=== PATIENT | female | born 1995 | race Caucasian/White ===

== ENCOUNTER 2020-10-15 21:16 | Emergency (ER) | payer OTHER ==
--- NOTE | 2020-10-15 22:04 | ED ---
Female Urogenital HPI - General Chief complaint: Vaginal Bleeding Stated complaint: Vaginal Bleeding(7 or 8 weeks ) Time Seen by Provider: 10/15/20 21:35 Source: patient, family, RN notes reviewed, old records reviewed Mode of arrival: ambulatory Limitations: no limitations - History of Present Illness Initial comments: This patient's a 25-year-old female who presents emergency room today with onset of vaginal bleeding and spotting for the past 2 days. She is approximately 8 weeks . Her last menstrual period. She states this is her first . She denies any intercourse prior to the abnormal bleeding. Patient states that she's had no testing for this at this time. She reports some lower abdominal cramping. Patient reports that she's had no fevers or chills or chest pain shortness of breath. - Related Data Previous Rx's Medication Instructions Recorded Cephalexin [Keflex] 500 mg PO Q8HR #21 cap 10/15/20 Allergies Allergy/AdvReac Type Severity Reaction Status Date / Time No Known Allergies Allergy Verified 10/15/20 21:31 Review of Systems ROS Statement: Those systems with pertinent positive or pertinent negative responses have been documented in the HPI. ROS Other: All systems not noted in ROS Statement are negative. Past Medical History Additional Past Medical History / Comment(s): ADHD History of Any Multi-Drug Resistant Organisms: None Reported Past Surgical History: No Surgical Hx Reported Past Psychological History: ADD/ADHD, Anxiety, Depression Smoking Status: Former smoker Past Alcohol Use History: Occasional Past Drug Use History: None Reported General Exam - General Exam Comments Initial Comments: 25 year old female, no distress. Limitations: no limitations General appearance: alert, in no apparent distress Head exam: Present: atraumatic, normocephalic, normal inspection Eye exam: Present: normal appearance, PERRL, EOMI. Absent: scleral icterus, conjunctival injection, periorbital swelling ENT exam: Present: normal exam, mucous membranes moist Neck exam: Present: normal inspection. Absent: tenderness, meningismus, lymphadenopathy Respiratory exam: Present: normal lung sounds bilaterally. Absent: respiratory distress, wheezes, rales, rhonchi, stridor Cardiovascular Exam: Present: regular rate, normal rhythm, normal heart sounds. Absent: systolic murmur, diastolic murmur, rubs, gallop, clicks GI/Abdominal exam: Present: soft, normal bowel sounds. Absent: distended, tenderness, guarding, rebound, rigid External exam: Present: normal external exam Speculum exam: Present: normal speculum exam By manual exam: Present: normal by manual exam Extremities exam: Present: normal inspection, full ROM, normal capillary refill. Absent: tenderness, pedal edema, joint swelling, calf tenderness Back exam: Present: normal inspection Neurological exam: Present: alert, oriented X3, CN II-XII intact Psychiatric exam: Present: normal affect, normal mood Skin exam: Present: warm, dry, intact, normal color. Absent: rash Course Vital Signs 10/15/20 10/15/20 21:27 23:30 Temperature 97.2 F L 97.8 F Pulse Rate 69 68 Respiratory 22 16 Rate Blood Pressure 121/50 127/62 O2 Sat by Pulse 97 98 Oximetry Medical Decision Making - Medical Decision Making 25 year old female, female on approximately 7-8 weeks . She reported vaginal bleeding today. On pelvic exam she has no bleeding. No tenderness. UA shows bacteruria, and will place pt on keflex. US shows viable IUP measuring 8 weeks. Rh positive. Pt labs are normal. - Lab Data Result diagrams: 10/15/20 21:58 Lab Results 10/15/20 10/15/20 10/15/20 Range/Units 21:49 21:58 21:58 WBC 10.7 H (3.8-10.6) k/uL RBC 4.07 (3.80-5.40) m/uL Hgb 13.1 (11.4-16.0) gm/dL Hct 38.1 (34.0-46.0) % MCV 93.7 (80.0-100.0) fL MCH 32.1 (25.0-35.0) pg MCHC 34.3 (31.0-37.0) g/dL RDW 12.1 (11.5-15.5) % Plt Count 251 (150-450) k/uL MPV 8.9 Neutrophils % 63 % Lymphocytes % 30 % Monocytes % 5 % Eosinophils % 1 % Basophils % 0 % Neutrophils # 6.7 (1.3-7.7) k/uL Lymphocytes # 3.2 (1.0-4.8) k/uL Monocytes # 0.5 (0-1.0) k/uL Eosinophils # 0.1 (0-0.7) k/uL Basophils # 0.0 (0-0.2) k/uL HCG, Quant mIU/mL Urine Color Light Yellow Urine Appearance Cloudy H (Clear) Urine pH 6.5 (5.0-8.0) Ur Specific [place] 1.006 (1.001-1.035) Urine Protein Negative (Negative) Urine Glucose (UA) Negative (Negative) Urine Ketones Negative (Negative) Urine Blood Negative (Negative) Urine Nitrite Negative (Negative) Urine Bilirubin Negative (Negative) Urine Urobilinogen <2.0 (<2.0) mg/dL Ur Leukocyte Esterase Small H (Negative) Urine RBC 3 (0-5) /hpf Urine WBC 6 H (0-5) /hpf Ur Squamous Epith Cells 8 H (0-4) /hpf Amorphous Sediment Rare H (None) /hpf Urine Bacteria Occasional H (None) /hpf Urine Mucus Rare H (None) /hpf Trichomonas Ag (Rapid) Negative (Negative) Blood Type Blood Type Recheck Bld Type Recheck Status 10/15/20 10/15/20 Range/Units 21:58 21:58 WBC (3.8-10.6) k/uL RBC (3.80-5.40) m/uL Hgb (11.4-16.0) gm/dL Hct (34.0-46.0) % MCV (80.0-100.0) fL MCH (25.0-35.0) pg MCHC (31.0-37.0) g/dL RDW (11.5-15.5) % Plt Count (150-450) k/uL MPV Neutrophils % % Lymphocytes % % Monocytes % % Eosinophils % % Basophils % % Neutrophils # (1.3-7.7) k/uL Lymphocytes # (1.0-4.8) k/uL Monocytes # (0-1.0) k/uL Eosinophils # (0-0.7) k/uL Basophils # (0-0.2) k/uL HCG, Quant 243012.0 mIU/mL Urine Color Urine Appearance (Clear) Urine pH (5.0-8.0) Ur Specific [place] (1.001-1.035) Urine Protein (Negative) Urine Glucose (UA) (Negative) Urine Ketones (Negative) Urine Blood (Negative) Urine Nitrite (Negative) Urine Bilirubin (Negative) Urine Urobilinogen (<2.0) mg/dL Ur Leukocyte Esterase (Negative) Urine RBC (0-5) /hpf Urine WBC (0-5) /hpf Ur Squamous Epith Cells (0-4) /hpf Amorphous Sediment (None) /hpf Urine Bacteria (None) /hpf Urine Mucus (None) /hpf Trichomonas Ag (Rapid) (Negative) Blood Type O Positive Blood Type Recheck No Previous Record Bld Type Recheck Status [facility] ONLY - Radiology Data Radiology results: report reviewed Single living intrauterine fetus. Ultrasound gestational is 8 weeks. No, getting process noted. Heart rate 1 58 bpm. Disposition Clinical Impression: Asymptomatic bacteriuria during , 8 weeks gestation of Disposition: HOME SELF-CARE Condition: Good Instructions (If sedation given, give patient instructions): (ED) Additional Instructions: Patient has a follow-up with [facility]. There is no signs of vaginal bleeding at this time. Return to emergency department if any alarming signs or symptoms occur. Patient should take the antibiotic as prescribed for bacteria in the urine. Prescriptions: Cephalexin [Keflex] 500 mg PO Q8HR #21 cap Is patient prescribed a controlled substance at d/c from ED?: No Referrals: None,Stated [Primary Care Provider] - 1-2 days Time of Disposition: 23:13
[2020-10-15 22:13] LABS: Basophils % (A) 0 %; Eosinophils # (A) 0.1 k/uL (0-0.7); Eosinophils % (A) 1 %; HCT 38.1 % (34.0-46.0); HGB 13.1 gm/dL (11.4-16.0); Lymphocytes # (A) 3.2 k/uL (1.0-4.8); Lymphocytes % (A) 30 %; MCH 32.1 pg (25.0-35.0); MCHC 34.3 g/dL (31.0-37.0); MCV 93.7 fL (80.0-100.0); Mean Platelet Volume 8.9; Monocytes # (A) 0.5 k/uL (0-1.0); Monocytes % (A) 5 %; Neutrophils # (A) 6.7 k/uL (1.3-7.7); Neutrophils % (A) 63 %; Platelet Count 251 k/uL (150-450); RBC 4.07 m/uL (3.80-5.40); RDW 12.1 % (11.5-15.5); WBC 10.7 k/uL (3.8-10.6)
[2020-10-15 22:27] LABS: Amorphous Sediment,Urine Rare /hpf; Appearance,Urine Cloudy (Clear); Bacteria,Urine Occasional /hpf; Bilirubin,Urine Negative (Negative); Blood,Urine Negative (Negative); Color,Urine Light Yellow; Glucose,Urine (UA) Negative (Negative); Ketones,Urine Negative (Negative); Leukocyte Esterase,Urine Small (Negative); Mucus,Urine Rare /hpf; Nitrite,Urine Negative (Negative); PH, Urine 6.5 (5.0-8.0); Protein,Urine Negative (Negative); RBC,Urine 3 /hpf (0-5); Specific Gravity,Urine 1.006 (1.001-1.035); Squamous Epithelial Cell,Urine 8 /hpf (0-4); Urobilinogen,Urine <2.0 mg/dL (<2.0); WBC,Urine 6 /hpf (0-5)
--- NOTE | 2020-10-15 23:06 | US ---
EXAMINATION TYPE: Transabdominal DATE OF EXAM: 10/15/2020 10:35 PM COMPARISON: NONE CLINICAL HISTORY: pain. spotting in early ob x 1 day EXAM PERFORMED: OBTA EXAM MEASUREMENTS: GESTATIONAL AGE / DATING Physician Established: Not yet established Dates by LMP: (8 weeks/4 days) EDC: 05/23/2021 Dates by First Scan: No previous this is first scan Dates by Current Scan for: (8 weeks/0 days) EDC: 05/27/2021 MATERNAL ANATOMY Uterus: 9.0 x 7.1 x 5.6cm Right Ovary: 3.3 x 2.2 x 2.8cm Left Ovary: not seen due to bowel gas and enlarging UT Post CDS / Adnexa: wnl Presence of free fluid: no Presence of corpus luteal cyst: yes, right ov = 2.3cm Presence of subchorionic bleed: no GESTATION / SURVEY CRL: 1.6cm (8 weeks/0 days) MSD: wnl Yolk Sac (normal less than 6mm): 0.2 Heart Rate: 158 bpm Rhythm: Normal IUP: Viable IUP Date of LMP: 08/16/2020 Beta HcG (if available): pending IMPRESSION: Single living intrauterine fetus. Ultrasound gestational age is 8 weeks. No complicating process seen .
[2020-10-15 23:31] VITALS: BP 127/62; PULSE 68; RESP 16; TEMP 97.8
== END 2020-10-15 23:25 | disposition home or self-care (01) ==
LOC: EC 21:16
DX: O26.891 Other specified pregnancy related conditions, first trimester (principal); R82.71 Bacteriuria; Z87.891 Personal history of nicotine dependence; Z3A.08 8 weeks gestation of pregnancy
CPT/HCPCS: 36415; 76801; 81001; 84702; 85025; 86900; 86901; 87491; 87591; 87808; 99284

== ENCOUNTER 2020-11-22 06:25 | Emergency (ER) | payer OTHER ==
[2020-11-22 06:33] VITALS: RESP 18; TEMP 99
--- NOTE | 2020-11-22 06:58 | ED ---
Female Urogenital HPI - General Chief complaint: Urogenital Stated complaint: abd pain,12 wks preg Time Seen by Provider: 11/22/20 06:31 Source: patient Mode of arrival: ambulatory Limitations: no limitations - History of Present Illness Initial comments: 25yo female with no PMH presenting today for cc of lower abdominal cramping and vaginal discharge/pain/itching. pt states she has had some mild lower abdominal cramping. she denies it currently. pt states she has not had any bleeding. denies severe pain. pt admits to external/interal vaginal itching and thicker, white discharge. no specific odor. patient denies nausea, vomiting, upper abdominal pain, fevers, URI symptoms. Pt states she came here for similar complaint and 2 weeks ago and was treated for UTI. patient has no additional complaints. - Related Data Home Medications Medication Instructions Recorded Confirmed Pnv,Calcium 72/Iron/Folic Acid 1 tab PO HS 11/22/20 11/22/20 [ Plus Tablet] Previous Rx's Medication Instructions Recorded Clotrimazole [Gyne-Lotrimin 2% (3 1 applicator VAGINAL HS 3 Days #3 11/22/20 day)] tube Allergies Allergy/AdvReac Type Severity Reaction Status Date / Time No Known Allergies Allergy Verified 11/22/20 06:33 Review of Systems ROS Statement: Those systems with pertinent positive or pertinent negative responses have been documented in the HPI. ROS Other: All systems not noted in ROS Statement are negative. Past Medical History Additional Past Medical History / Comment(s): ADHD History of Any Multi-Drug Resistant Organisms: None Reported Past Surgical History: No Surgical Hx Reported Past Psychological History: ADD/ADHD, Anxiety, Depression Smoking Status: Former smoker Past Alcohol Use History: Occasional Past Drug Use History: None Reported General Exam - General Exam Comments Initial Comments: General: The patient is awake and alert, in no distress Eye: +3 mm pupils are equal, round and reactive to light, extra-ocular movements are intact. No nystagmus. There is normal conjunctiva bilaterally. No signs of icterus. Ears, nose, mouth and throat: There are moist mucous membranes and no oral lesions. Neck: The neck is supple, there is no tenderness or JVD. Cardiovascular: There is a regular rate and rhythm. No murmur, rub or gallop is appreciated. Respiratory: Lungs are clear to auscultation, respirations are non-labored, breath sounds are equal. No wheezes, stridor, rales, or rhonchi. Gastrointestinal: Soft, non-distended, non-tender abdomen without masses or organomegaly noted. There is no rebound or guarding present : red, irritated external tissues, chunky white disharge in vaginal vault. no odors. no cervical motion tenderness. Musculoskeletal: Normal ROM, no tenderness. Strength 5/5. Sensation intact. Radial pulses equal bilaterally 2+. Neurological: A&O x 3. CN II-XII intact grossly, There are no obvious motor or sensory deficits. Coordination appears grossly intact. Speech is normal. Skin: Skin is warm and dry and no rashes or lesions are noted. Psychiatric: Cooperative, appropriate mood & affect, normal judgment. Limitations: no limitations Course Vital Signs 11/22/20 11/22/20 06:30 08:10 Temperature 99 F Pulse Rate 69 79 Respiratory 18 18 Rate Blood Pressure 121/79 98/62 O2 Sat by Pulse 98 98 Oximetry Medical Decision Making - Medical Decision Making findings consistent with juan vaginitis. US WNL. No bleeding hx or exam. Pt has no current cramping. she will be discharged with obgyn f/u. return for worsening symptoms. pt on antibiotics. Urine not clean catch--will culture. [facility] agreeable to care plan. - Lab Data Result diagrams: 11/22/20 07:31 11/22/20 07:31 Lab Results 11/22/20 11/22/20 11/22/20 Range/Units 06:59 06:59 07:31 WBC 12.5 H (3.8-10.6) k/uL RBC 3.95 (3.80-5.40) m/uL Hgb 12.7 (11.4-16.0) gm/dL Hct 37.1 (34.0-46.0) % MCV 94.0 (80.0-100.0) fL MCH 32.3 (25.0-35.0) pg MCHC 34.3 (31.0-37.0) g/dL RDW 12.4 (11.5-15.5) % Plt Count 271 (150-450) k/uL MPV 8.2 Neutrophils % 69 % Lymphocytes % 25 % Monocytes % 3 % Eosinophils % 1 % Basophils % 0 % Neutrophils # 8.6 H (1.3-7.7) k/uL Lymphocytes # 3.1 (1.0-4.8) k/uL Monocytes # 0.4 (0-1.0) k/uL Eosinophils # 0.1 (0-0.7) k/uL Basophils # 0.1 (0-0.2) k/uL Sodium (137-145) mmol/L Potassium (3.5-5.1) mmol/L Chloride (98-107) mmol/L Carbon Dioxide (22-30) mmol/L Anion Gap mmol/L BUN (7-17) mg/dL Creatinine (0.52-1.04) mg/dL Est GFR (CKD-EPI)AfAm (>60 ml/min/1.73 sqM) Est GFR (CKD-EPI)NonAf (>60 ml/min/1.73 sqM) Glucose (74-99) mg/dL Calcium (8.4-10.2) mg/dL Total Bilirubin (0.2-1.3) mg/dL AST (14-36) U/L ALT (4-34) U/L Alkaline Phosphatase (38-126) U/L Total Protein (6.3-8.2) g/dL Albumin (3.5-5.0) g/dL Urine Color Light Yellow Urine Appearance Cloudy H (Clear) Urine pH 6.0 (5.0-8.0) Ur Specific [place] 1.011 (1.001-1.035) Urine Protein Negative (Negative) Urine Glucose (UA) Negative (Negative) Urine Ketones Negative (Negative) Urine Blood Negative (Negative) Urine Nitrite Negative (Negative) Urine Bilirubin Negative (Negative) Urine Urobilinogen <2.0 (<2.0) mg/dL Ur Leukocyte Esterase Moderate H (Negative) Urine RBC 2 (0-5) /hpf Urine WBC 2 (0-5) /hpf Ur Squamous Epith Cells 6 H (0-4) /hpf Urine Bacteria Occasional H (None) /hpf Urine Mucus Rare H (None) /hpf Trichomonas Ag (Rapid) Negative (Negative) Blood Type Blood Type Recheck Bld Type Recheck Status 11/22/20 11/22/20 Range/Units 07:31 07:31 WBC (3.8-10.6) k/uL RBC (3.80-5.40) m/uL Hgb (11.4-16.0) gm/dL Hct (34.0-46.0) % MCV (80.0-100.0) fL MCH (25.0-35.0) pg MCHC (31.0-37.0) g/dL RDW (11.5-15.5) % Plt Count (150-450) k/uL MPV Neutrophils % % Lymphocytes % % Monocytes % % Eosinophils % % Basophils % % Neutrophils # (1.3-7.7) k/uL Lymphocytes # (1.0-4.8) k/uL Monocytes # (0-1.0) k/uL Eosinophils # (0-0.7) k/uL Basophils # (0-0.2) k/uL Sodium 137 (137-145) mmol/L Potassium 3.7 (3.5-5.1) mmol/L Chloride 104 (98-107) mmol/L Carbon Dioxide 25 (22-30) mmol/L Anion Gap 8 mmol/L BUN 5 L (7-17) mg/dL Creatinine 0.43 L (0.52-1.04) mg/dL Est GFR (CKD-EPI)AfAm >90 (>60 ml/min/1.73 sqM) Est GFR (CKD-EPI)NonAf >90 (>60 ml/min/1.73 sqM) Glucose 91 (74-99) mg/dL Calcium 9.6 (8.4-10.2) mg/dL Total Bilirubin 0.3 (0.2-1.3) mg/dL AST 17 (14-36) U/L ALT 13 (4-34) U/L Alkaline Phosphatase 64 (38-126) U/L Total Protein 7.0 (6.3-8.2) g/dL Albumin 4.1 (3.5-5.0) g/dL Urine Color Urine Appearance (Clear) Urine pH (5.0-8.0) Ur Specific [place] (1.001-1.035) Urine Protein (Negative) Urine Glucose (UA) (Negative) Urine Ketones (Negative) Urine Blood (Negative) Urine Nitrite (Negative) Urine Bilirubin (Negative) Urine Urobilinogen (<2.0) mg/dL Ur Leukocyte Esterase (Negative) Urine RBC (0-5) /hpf Urine WBC (0-5) /hpf Ur Squamous Epith Cells (0-4) /hpf Urine Bacteria (None) /hpf Urine Mucus (None) /hpf Trichomonas Ag (Rapid) (Negative) Blood Type O Positive Blood Type Recheck O Pos Bld Type Recheck Status No Disposition Clinical Impression: Abdominal cramping, Yeast vaginitis Disposition: HOME SELF-CARE Condition: Good Additional Instructions: Please use medication as discussed. Please follow-up with family doctor in the next 2 days.. Please return to emergency room if the symptoms increase or worsen or for any other concerns. Prescriptions: Clotrimazole [Gyne-Lotrimin 2% (3 day)] 1 applicator VAGINAL HS 3 Days #3 tube Is patient prescribed a controlled substance at d/c from ED?: No Referrals: None,Stated [Primary Care Provider] - 1-2 days Bill Joshi MD [STAFF PHYSICIAN] - 1-2 days Time of Disposition: 08:15
[2020-11-22 07:46] LABS: Basophils # (A) 0.1 k/uL (0-0.2); Basophils % (A) 0 %; Eosinophils # (A) 0.1 k/uL (0-0.7); Eosinophils % (A) 1 %; HCT 37.1 % (34.0-46.0); HGB 12.7 gm/dL (11.4-16.0); Lymphocytes # (A) 3.1 k/uL (1.0-4.8); Lymphocytes % (A) 25 %; MCH 32.3 pg (25.0-35.0); MCHC 34.3 g/dL (31.0-37.0); Mean Platelet Volume 8.2; Monocytes # (A) 0.4 k/uL (0-1.0); Monocytes % (A) 3 %; Neutrophils # (A) 8.6 k/uL (1.3-7.7); Neutrophils % (A) 69 %; Platelet Count 271 k/uL (150-450); RBC 3.95 m/uL (3.80-5.40); RDW 12.4 % (11.5-15.5); WBC 12.5 k/uL (3.8-10.6)
--- NOTE | 2020-11-22 07:53 | US ---
EXAMINATION TYPE: Transabdominal DATE OF EXAM: 11/22/2020 7:25 AM COMPARISON: NONE CLINICAL HISTORY: pain. EXAM PERFORMED: Transabdominal (TA) EXAM MEASUREMENTS: GESTATIONAL AGE / DATING Physician Established:13 weeks/ 3days) EDC: 05/27/2021 Dates by LMP: (14 weeks/0 days) EDC: 05/23/2021 Dates by First Scan: (13 weeks/3 days) EDC: 05/27/21 Dates by Current Scan for:(13 weeks/0 days) EDC: 05/30/21 MATERNAL ANATOMY Uterus: 14.7 x 8.1 x 10.1cm Right Ovary: 3.2 x 2.3 x 2.1cm Left Ovary: obscured by overlying bowel gas, increasing uterine size Post CDS / Adnexa: wnl Presence of free fluid: no Presence of subchorionic bleed: no GESTATION / SURVEY CRL: 6.7 (12 weeks/3 days) Yolk Sac (normal less than 6mm): not visualized Heart Rate: 157 bpm Rhythm: Normal Date of LMP: 08-16-20 Beta HcG (if available): Not available at this time IMPRESSION: Single intrauterine gestation estimated at 12 weeks 3 days gestation based on crown-rump length. Card iac activity of 157 bpm.
[2020-11-22 07:55] LABS: ALT 13 U/L (4-34); AST 17 U/L (14-36); African American GFR (CKD) >90 (>60 ml/min/1.73 sqM); Albumin 4.1 g/dL (3.5-5.0); Alkaline Phosphatase 64 U/L (38-126); Anion Gap 8 mmol/L; Blood Urea Nitrogen 5 mg/dL (7-17); Calcium 9.6 mg/dL (8.4-10.2); Carbon Dioxide 25 mmol/L (22-30); Chloride 104 mmol/L (98-107); Glucose 91 mg/dL (74-99); Non-African American GFR(CKD) >90 (>60 ml/min/1.73 sqM); Potassium 3.7 mmol/L (3.5-5.1); Sodium 137 mmol/L (137-145); Total Bilirubin 0.3 mg/dL (0.2-1.3)
[2020-11-22 08:11] VITALS: BP 98/62; PULSE 79
[2020-11-22 08:17] LABS: Appearance,Urine Cloudy (Clear); Bacteria,Urine Occasional /hpf; Bilirubin,Urine Negative (Negative); Blood,Urine Negative (Negative); Color,Urine Light Yellow; Glucose,Urine (UA) Negative (Negative); Ketones,Urine Negative (Negative); Leukocyte Esterase,Urine Moderate (Negative); Mucus,Urine Rare /hpf; Nitrite,Urine Negative (Negative); Protein,Urine Negative (Negative); RBC,Urine 2 /hpf (0-5); Specific Gravity,Urine 1.011 (1.001-1.035); Squamous Epithelial Cell,Urine 6 /hpf (0-4); Urobilinogen,Urine <2.0 mg/dL (<2.0); WBC,Urine 2 /hpf (0-5)
[2020-11-23 13:32] LABS: C. trachomatis,PCR Negative (Neg,Equiv); Chlamydia trachomatis Source Vagina; N. gonorrhoeae,PCR Negative (Neg,Equiv); Neisseria Source Vagina
== END 2020-11-22 08:35 | disposition home or self-care (01) ==
LOC: EC 06:25
DX: O98.811 Other maternal infectious and parasitic diseases complicating pregnancy, first trimester (principal); B37.3 Candidiasis of vulva and vagina; O26.891 Other specified pregnancy related conditions, first trimester; R10.30 Lower abdominal pain, unspecified; Z87.891 Personal history of nicotine dependence; Z3A.12 12 weeks gestation of pregnancy; Z87.440 Personal history of urinary (tract) infections
CPT/HCPCS: 36415; 76801; 80053; 81001; 85025; 86900; 86901; 87070; 87491; 87591; 87808; 99284

== ENCOUNTER 2021-05-24 16:25 | Inpatient (IN) | payer OTHER ==
--- NOTE | 2021-05-24 09:37 | P.HPOB ---
History of Present Illness H&P Date: 05/24/21 Chief Complaint: Requested induction of labor This patient is a pleasant 26-year-old 1 para 0 female estimated date of confinement 05/23/2021 estimated gestational age 40 and one sevenths weeks who presents to labor and delivery requesting induction of labor due to postdates. Patient's has been uncomplicated with the exception of breech at 35 weeks however this didn't spontaneously converted to vertex. Patient now has an unfavorable cervix and wishes to be induced. care otherwise has been uncomplicated. Review of Systems Genitourinary: Reports Menstruation: Reports amenorrhea Past Medical History Additional Past Medical History / Comment(s): ADHD History of Any Multi-Drug Resistant Organisms: None Reported Past Surgical History: No Surgical Hx Reported Past Anesthesia/Blood Transfusion Reactions: No Reported Reaction Past Psychological History: ADD/ADHD, Anxiety, Depression Smoking Status: Former smoker Past Alcohol Use History: Occasional Past Drug Use History: Marijuana (History of. Denies use during ) Medications and Allergies Home Medications Medication Instructions Recorded Confirmed Type Clotrimazole [Gyne-Lotrimin 2% (3 1 applicator VAGINAL HS 3 Days #3 11/22/20 Rx day)] tube Pnv,Calcium 72/Iron/Folic Acid 1 tab PO HS 11/22/20 11/22/20 History [ Plus Tablet] Allergies Allergy/AdvReac Type Severity Reaction Status Date / Time No Known Allergies Allergy Verified 11/22/20 06:33 Exam - OBG Physical Exam Abdomen: bowel sounds normal, no diffuse tenderness, no bruit present, no guarding noted, no hepatomegaly, no splenomegaly, no mass Vulva: both: normal Vagina: normal moisture, no discharge Cervix: no lesion, no discharge Uterus: enlarged (Fundal height 39 cm) Results blood work shows she is A positive, rubella nonimmune, RPR nonreactive, hepatitis B negative, HIV is negative, quad screen was normal, Glucola was 148 with a normal three-hour gtt., group B strep was negative, most recent ultrasound showed the baby to be 5 lbs. 15 oz. and that was on April 17 Assessment and Plan Assessment: This is a pleasant 26-year-old 1 para 0 female 40 and one sevenths weeks gestation requesting induction of labor. Patient hasn't ounces favorable cervix and therefore were going to proceed with Cervidil placement and Pitocin induction tomorrow. Patient I discussed the induction process and all of her questions been answered. (1) Postmaturity , 40-42 weeks gestation Status: Acute Code(s): O48.0 - POST-TERM SNOMED Code(s): 27596572446714 (2) Elective induction of labor planned Status: Acute Code(s): VUC9395 - SNOMED Code(s): 072526136 (3) Rubella non-immune status, antepartum Status: Acute Code(s): O99.891 - OTH DISEASES AND CONDITIONS COMPLICATING ; Z28.3 - UNDERIMMUNIZATION STATUS SNOMED Code(s): 104172485
[2021-05-24] MEDS ORDERED: DINOPROSTONE 10 MG INSERT.ER VAGINAL ONE (16:36)
[2021-05-25] MEDS ORDERED: LIDOCAINE 0.5% (PF) 5 MG/ML (50 ML SDV) SQ PRN (05:17)
[2021-05-25] MEDS ORDERED: OXYTOCIN 10 UNIT/ML 1 ML VIAL IM PRN (05:17)
[2021-05-25] MEDS ORDERED: METHYLERGONOVINE 0.2 MG/ML 1 ML AMP IM PRN (05:17)
[2021-05-25] MEDS ORDERED: OXYTOCIN 30 UNITS/500 ML NS 30 UNIT in SALINE 1 500ML.BAG IV SCH ×2 (05:17→17:45)
[2021-05-25] MEDS ORDERED: TERBUTALINE 1 MG/ML VIAL SQ PRN (05:17)
[2021-05-25] MEDS ORDERED: CARBOPROST TROMETHAMINE 250 MCG/ML 1 ML AMP IM PRN (05:17)
[2021-05-25] MEDS: LACTATED RINGERS 1,000 ML IV SCH ×2 (05:45→12:50)
[2021-05-25 06:31] LABS: Basophils % (A) 0 %; Eosinophils # (A) 0.1 k/uL (0-0.7); Eosinophils % (A) 1 %; HCT 35.3 % (34.0-46.0); HGB 11.7 gm/dL (11.4-16.0); Lymphocytes # (A) 3.2 k/uL (1.0-4.8); Lymphocytes % (A) 20 %; MCH 29.7 pg (25.0-35.0); MCHC 33.2 g/dL (31.0-37.0); MCV 89.7 fL (80.0-100.0); Monocytes # (A) 0.8 k/uL (0-1.0); Monocytes % (A) 5 %; Neutrophils # (A) 11.4 k/uL (1.3-7.7); Neutrophils % (A) 72 %; Platelet Count 431 k/uL (150-450); RBC 3.93 m/uL (3.80-5.40); RDW 14.6 % (11.5-15.5); WBC 15.8 k/uL (3.8-10.6)
[2021-05-25] MEDS: BUTORPHANOL 1 MG/ML 1 ML VIAL IV PRN ×2 (11:26→14:35)
[2021-05-25] MEDS: BENZOCAINE/MENTHOL LOZENG 1 EACH LOZENGE MUCOUS MEM PRN (13:01)
[2021-05-25] MEDS ORDERED: CITRIC ACID-SODIUM CITRATE 15 ML CUP PO ONE (16:53)
[2021-05-25] MEDS ORDERED: OXYTOCIN 30 UNITS/500 ML NS BAG IV ONE (16:58)
[2021-05-25] MEDS ORDERED: KETOROLAC 15 MG/ML 1 ML VIAL ONE (16:58)
[2021-05-25] MEDS ORDERED: MORPHINE SULFATE (PF) 0.3 MG/0.3 ML SYR ONE (16:58)
[2021-05-25] MEDS ORDERED: NALOXONE 0.4 MG/ML 1 ML VIAL IV PRN (17:38)
[2021-05-25] MEDS ORDERED: diphenhydrAMINE 25 MG CAP PO PRN (17:38)
[2021-05-25] MEDS ORDERED: METOCLOPRAMIDE 5 MG/ML 2 ML VIAL IVP PRN (17:38)
[2021-05-25] MEDS ORDERED: diphenhydrAMINE 50 MG/ML 1 ML VIAL IVP PRN (17:38)
[2021-05-25] MEDS ORDERED: HYDROmorphone 2 MG TAB PO PRN (17:38)
[2021-05-25] MEDS ORDERED: SIMETHICONE 80 MG CHEWABLE PO PRN (17:38)
[2021-05-25] MEDS ORDERED: LANOLIN CREAM 5 GM TUBE TOPICAL PRN (17:38)
[2021-05-25] MEDS ORDERED: ZOLPIDEM 5 MG TAB PO PRN (17:38)
[2021-05-25] MEDS ORDERED: ONDANSETRON 4 MG/2 ML VIAL IVP PRN (17:38)
--- NOTE | 2021-05-25 17:50 | P.OP ---
Date of Procedure: 05/25/21 Preoperative Diagnosis: #1: 40-2/7 week intrauterine . #2: Failure to progress in labor. Postoperative Diagnosis: Same, macrosomia Procedure(s) Performed: Primary low transverse section Anesthesia: spinal Surgeon: Esteban Proctor Fisher Scallop #1: Sara Mukherjee Estimated Blood Loss (ml): 600 Pathology: none sent Condition: stable Disposition: floor Indications for Procedure: Please see dictated H&P for intimate details of this patient's admission. Brief summary this pleasant 26-year-old 1 para 0 female 40-2/7 weeks gestation admitted to labor and delivery for postdates induction of labor. Patient has Cervidil placed, Pitocin induction progresses only to 3 cm without descent of the head. This time I counseled the patient despite adequate labor we've not had progression and we elected proceed with section for delivery. Patient does understand the surgery and risks and risks of infection, bleeding, possible injury bowel, bladder, vessels, and/or other organs. All the patient's questions are answered written consent obtained. Operative Findings: This is a vigorous viable male Apgars 9 and 9 delivery time is 1713 hrs. weight was 9 lbs. 2 oz. 4150 g Description of Procedure: This patient has a Hernández catheter placed to straight drain. She is subsequently taken to the operating room where she sat up and spinal anesthetic is adm inistered without incident. With an adequate level of anesthesia she has abdominal prep and drape. Scalpels and taken Pfannenstiel skin incision is then made. A second scalpel is taken down the fascia the fascia scored with a knife. Fascial incision extended bilaterally using Benavides scissors. Fascia is then dissected off the rectus muscles sharply. The rectus muscles are the peritoneum identified and entered sharply. Peritoneal incision extended superior and inferior without difficulty. Bladder blade is then placed. Bladder peritoneum was taken sharply off the lower uterine segment. Scalpels and taken a low transverse uterine incision is then made. Using a hemostat I enter the uterine cavity bluntly and there is loss of small amount of clear fluid. This incision is then extended bluntly. Infant's head is then guided through the incision with fundal pressure delivered. Mouth and nares are bulb suctioned. There is no evidence of nuchal cord. With more fundal pressure we then have deliver the anterior and posterior shoulder and rest this infant's body. Is a vigorous viable male Apgars are 9 and 9 delivery time is 1713 hrs. Infant appears to be grossly normal and has spontaneous respiration. After delivery of the the umbilical cord is doubly clamped and cut appears to be trivascular. Placenta is then manually extracted intact. Uterus is then externalized uterine incision demarcated with Coulter clamps. Uterine incision then closed in 0 Vicryl running locked fashion 2 layers. Excellent hemostasis is noted. Bladder peritoneum was then reapproximated using a 3-0 Vicryl. Excess fluid is removed from the abdomen and pelvis. Uterus placed back into the abdomen. Parietal peritoneum was then closed using 0 Vicryl running fashion. Rectus muscles reapproximated in 0 Vicryl interrupted fashion. Fascial incision is then closed using 0 PDS in a running fashion. Fascial incision is intact and hemostatic. Subcutaneous tissues and closed using a 3-0 Vicryl. Skin is and closed using hossein. All counts are correct 3. There are no complications. Infant and mother are taken to her birthing suite in satisfactory condition.
[2021-05-25] MEDS ORDERED: MEASLES-MUMPS-RUBELLA VACC/PF 12,500 UNIT/0.5 ML VIAL SQ ONE (20:50)
[2021-05-26] MEDS: KETOROLAC 15 MG/ML 1 ML VIAL IVP PRN ×3 (00:45→14:00)
[2021-05-26] MEDS: LACTATED RINGERS 1,000 ML IV SCH ×2 (04:20→16:41)
--- NOTE | 2021-05-26 06:12 | P.PN ---
Progress Note - Text Date:05/26/21 Time:536am Patient is status post . Patient seen this morning with VAS score of 3. c/o of pruritus, no c/o nausea/vomiting, comfortable and doing well.
[2021-05-26] MEDS: SENNOSIDES-DOCUSATE SODIUM 1 EACH TAB PO PRN ×2 (08:04→19:46)
[2021-05-26] MEDS: BENZOCAINE/MENTHOL LOZENG 1 EACH LOZENGE MUCOUS MEM PRN (08:05)
[2021-05-26 08:13] LABS: Basophils # (A) 0.1 k/uL (0-0.2); Basophils % (A) 0 %; Eosinophils # (A) 0.1 k/uL (0-0.7); Eosinophils % (A) 1 %; HCT 30.3 % (34.0-46.0); Lymphocytes # (A) 2.6 k/uL (1.0-4.8); Lymphocytes % (A) 18 %; MCH 29.5 pg (25.0-35.0); MCHC 32.3 g/dL (31.0-37.0); MCV 91.5 fL (80.0-100.0); Mean Platelet Volume 9.3; Monocytes # (A) 0.9 k/uL (0-1.0); Monocytes % (A) 6 %; Neutrophils # (A) 10.9 k/uL (1.3-7.7); Neutrophils % (A) 74 %; Platelet Count 336 k/uL (150-450); RBC 3.31 m/uL (3.80-5.40); RDW 15.2 % (11.5-15.5); WBC 14.7 k/uL (3.8-10.6)
[2021-05-26 08:15] LABS: HGB 9.8 gm/dL (11.4-16.0)
[2021-05-26] MEDS: ACETAMINOPHEN TAB 500 MG TAB PO PRN ×2 (13:05→18:49)
[2021-05-26] MEDS: IBUPROFEN 600 MG TAB PO PRN (22:06)
[2021-05-27] MEDS: ACETAMINOPHEN TAB 500 MG TAB PO PRN ×3 (01:08→19:56)
[2021-05-27] MEDS: IBUPROFEN 600 MG TAB PO PRN ×3 (04:03→23:19)
--- NOTE | 2021-05-27 12:15 | P.DS ---
Providers Date of admission: 05/24/21 16:25 Expected date of discharge: 05/27/21 Attending physician: Esteban Proctor Primary care physician: Esteban Proctor [facility] Course: Overall patient is doing very well postop day 2. She is ambulating, voiding and she is tolerating her diet. Her only complaint is that her left foot has some pain management likely due to the swelling. She does have 2+ pitting edema but no sign or symptom of DVT. Both feet are swollen equally. We'll plan to remove her ohssein today. Discharge instructions were thoroughly reviewed with her. On physical exam vital signs are stable and she is afebrile. Heart regular, lungs clear, extremities without pain. Abdomen soft and uterus is firm. Incision is clean dry and intact will plan to remove hossein again today. She will be discharged home on [place] and Motrin at her request. Prescription for breast pump also provided. Assessment postop day 2 from a . Plan follow up with Dr. Krause in 1 week otherwise as above. Patient Condition at Discharge: Good Plan - Discharge Summary New Discharge Prescriptions: New HYDROcodone/APAP 5-325MG [[place] 5-325] 1 tab PO Q4HR PRN #20 tab PRN Reason: Pain Ibuprofen [Motrin] 600 mg PO Q6HR PRN #30 tab PRN Reason: Pain Ibuprofen [Motrin] 600 mg PO Q6HR PRN #30 tab PRN Reason: Pain No Action Pnv,Calcium 72/Iron/Folic Acid [ Plus Tablet] 1 tab PO HS MDD 1 tab Discharge Medication List Pnv,Calcium 72/Iron/Folic Acid [ Plus Tablet] 1 tab PO HS MDD 1 tab 11/22/20 [History] HYDROcodone/APAP 5-325MG [[place] 5-325] 1 tab PO Q4HR PRN #20 tab 05/27/21 [Rx] Ibuprofen [Motrin] 600 mg PO Q6HR PRN #30 tab 05/27/21 [Rx] Ibuprofen [Motrin] 600 mg PO Q6HR PRN #30 tab 05/27/21 [Rx] Follow up Appointment(s)/Referral(s): Esteban Proctor MD [Primary Care Provider] - 07/05/21 11:15 am (June 02, 2021 @ 08:45a.m.) Activity/Diet/Wound Care/Special Instructions: Lifting, limit stairs and driving, and pelvic rest. If any high temperatures, heavy bleeding, or severe pain call my office Discharge Disposition: HOME SELF-CARE
[2021-05-28 00:57] VITALS: RESP 16
[2021-05-28] MEDS: ACETAMINOPHEN TAB 500 MG TAB PO PRN ×2 (02:23→08:47)
[2021-05-28] MEDS: IBUPROFEN 600 MG TAB PO PRN (05:38)
[2021-05-28 09:52] VITALS: BP 110/68; PULSE 78; TEMP 98.3
== END 2021-05-28 12:26 | disposition home or self-care (01) | DRG 788 ==
LOC: 4FBP 16:25
PROVIDERS: ADMIT Obstetrics & Gynecology; ATTEND Obstetrics & Gynecology
PROC: 10D00Z1 Extraction of Products of Conception, Low, Open Approach (ICD-10-PCS; principal; 2021-05-25 06:30)
DX: O48.0 Post-term pregnancy (principal); O36.63X0 Maternal care for excessive fetal growth, third trimester, not applicable or unspecified; O62.2 Other uterine inertia; Z37.0 Single live birth; Z3A.40 40 weeks gestation of pregnancy; Z87.891 Personal history of nicotine dependence
CPT/HCPCS: 85025; 86850; 86900; 86901; 90707

== ENCOUNTER 2025-05-19 10:10 | Inpatient (IN) | payer OTHER ==
[2025-05-19] MEDS ORDERED: TRANEXAMIC 1,000 MG/100ML-NACL 1,000 MG in EMPTY BAG 1 BAG IV PRN (10:49)
[2025-05-19] MEDS ORDERED: OXYTOCIN 10 UNIT/ML 1 ML VIAL IM PRN (10:49)
[2025-05-19] MEDS ORDERED: miSOPROStoL 200 MCG TAB PO PRN (10:49)
[2025-05-19] MEDS ORDERED: METHYLERGONOVINE 0.2 MG/ML 1 ML AMP IM PRN (10:49)
[2025-05-19] MEDS ORDERED: CARBOPROST TROMETHAMINE 250 MCG/ML 1 ML AMP IM PRN (10:49)
[2025-05-19] MEDS ORDERED: OXYTOCIN 30 UNITS/500 ML NS 30 UNIT in SALINE 1 500ML.BAG IV SCH (11:00)
[2025-05-19] MEDS: LACTATED RINGERS 1,000 ML IV ONE (11:11)
[2025-05-19 11:13] LABS: Basophils # (A) 0.08 10*3/uL (0.00-0.10); Basophils % (A) 0.6 %; Eosinophils # (A) 0.07 10*3/uL (0.04-0.35); Eosinophils % (A) 0.5 %; HCT 32.1 % (37.2-46.3); HGB 10.7 g/dL (12.0-15.0); Lymphocytes % (A) 21.8 %; MCH 29.6 pg (27.0-32.0); MCHC 33.3 g/dL (32.0-37.0); MCV 88.7 fL (80.0-97.0); Monocytes # (A) 0.85 10*3/uL (0.20-1.00); Monocytes % (A) 6.2 %; Neutrophils # (A) 9.66 10*3/uL (1.80-7.70); Neutrophils % (A) 70.2 %; Platelet Count 355 10*3/uL (140-440); RBC 3.62 10*6/uL (4.10-5.20); RDW 14.8 % (11.5-14.5); WBC 13.76 10*3/uL (4.50-10.00)
[2025-05-19 11:31] LABS: Glucose,Whole Blood 98 mg/dL (70-110)
[2025-05-19] MEDS: CITRIC ACID-SODIUM CITRATE 15 ML CUP PO ONE (11:33)
[2025-05-19] MEDS ORDERED: ONDANSETRON 4 MG/2 ML VIAL ONE (12:11)
[2025-05-19] MEDS ORDERED: MORPHINE SULFATE (PF) 0.3 MG/0.3 ML SYR ONE (12:11)
[2025-05-19] MEDS ORDERED: OXYTOCIN 30 UNITS/500 ML NS BAG IV ONE (12:11)
[2025-05-19] MEDS ORDERED: KETOROLAC 15 MG/ML 1 ML VIAL ONE (12:11)
[2025-05-19] MEDS ORDERED: PHENYLEPHRINE-0.9% NACL SYG 1,000 MCG/10 ML SYRINGE ONE (12:11)
[2025-05-19] MEDS ORDERED: NALBUPHINE (ANES) 10 MG/ML - 1 ML AMP ONE (12:11)
[2025-05-19] MEDS ORDERED: METOCLOPRAMIDE 5 MG/ML 2 ML VIAL IVP PRN (13:03)
[2025-05-19] MEDS ORDERED: ZOLPIDEM 5 MG TAB PO PRN (13:03)
[2025-05-19] MEDS ORDERED: LANOLIN CREAM 1 GM TUBE TOPICAL PRN (13:03)
[2025-05-19] MEDS ORDERED: ONDANSETRON 4 MG/2 ML VIAL IVP PRN (13:03)
[2025-05-19] MEDS ORDERED: diphenhydrAMINE 25 MG CAP PO PRN (13:03)
[2025-05-19] MEDS ORDERED: diphenhydrAMINE 50 MG CAP PO PRN (13:03)
[2025-05-19] MEDS ORDERED: NALOXONE 0.4 MG/ML 1 ML VIAL IV PRN (13:03)
[2025-05-19] MEDS ORDERED: SIMETHICONE 80 MG CHEWABLE PO PRN (13:03)
[2025-05-19] MEDS ORDERED: diphenhydrAMINE 50 MG/ML 1 ML VIAL IVP PRN (13:03)
--- NOTE | 2025-05-19 13:09 | P.HPOB ---
History of Present Illness H&P Date: 05/19/25 Chief Complaint: 39-2/7 weeks, previous section requesting repeat The patient is a 30-year-old 2 para 1-0-0-1 admitted at 39-2/7 weeks as established by last menstrual period and confirmed by second trimester ultrasound. Her care began at another practice and transferred to our practice at approximately 26 to 28 weeks. Her was complicated by an initial culture positive for chlamydia which was treated and tested for cure at which time culture was negative. She additionally was found to have a circumvallate placenta for which she had a weekly nonstress test after 32 weeks which was reassuring throughout. She additionally was found to be a gestational diabetic with good sugar control throughout the . She carried a hist ory of a previous section and requested repeat low-transverse section. On labor delivery, all signs are reassuring with a category 1 heart rate tracing. Group B strep status is negative. Obstetrical history: 2 para 1-0-0-1 with 1 term delivery without complications. EDC of 05/25/2025 was established by last menstrual period and confirmed by second trimester ultrasound. Laboratory workup demonstrates a blood type of O+ with a negative antibody screen. Rubella status is immune. The remainder of the laboratory workup was within normal limits. Early Glucola was elevated and followed by a and abnormal 3-hour glucose tolerance test making the diagnosis of diabetes. Blood sugar control was excellent throughout the per report. Group B strep status is negative. Obstetrical history: Positive for chlamydia at the beginning of but treated and cured with a negative test of cure in the third trimester. No other history of STDs. Review of Systems Review of systems is confined to history of present illness. Past Medical History Past Medical History: No Reported History Additional Past Medical History / Comment(s): ADHD History of Any Multi-Drug Resistant Organisms: None Reported Past Surgical History: No Surgical Hx Reported Past Anesthesia/Blood Transfusion Reactions: No Reported Reaction Past Psychological History: ADD/ADHD, Anxiety, Depression Additional Psychological History / Comment(s): prev on meds. no meds for one year Smoking Status: Former smoker Past Alcohol Use History: None Reported, Occasional Past Drug Use History: None Reported, Marijuana - Past Family History Mother Family Medical History: Asthma Medications and Allergies Home Medications Medication Instructions Recorded Confirmed Type Vit No.180/Iron/Folic 1 tab PO HS MDD 1 tab 11/22/20 05/19/25 History [ Plus Tablet] HYDROcodone/APAP 5-325MG [[place] 1 tab PO Q4HR PRN #20 tab 05/27/21 05/19/25 Rx 5-325] Ibuprofen [Motrin] 600 mg PO Q6HR PRN #30 tab 05/27/21 05/19/25 Rx Amoxicillin 250 mg PO BID 05/19/25 05/19/25 History Allergies Allergy/AdvReac Type Severity Reaction Status Date / Time No Known Allergies Allergy Verified 05/19/25 10:47 Exam Vital Signs Temp Pulse Resp BP Pulse Ox 05/19/25 10:47 97.3 F L 97 16 133/56 98 Intake and Output 05/18/25 05/19/25 05/19/25 22:59 06:59 14:59 Other: Weight 95.254 kg In general, this is a well-developed, well-nourished white female in no acute distress. Her heart has a regular rhythm and rate without murmur. Her lungs cl ear to auscultation bilaterally in all colon. Her abdomen is gravid, nondistended, has normal active bowel sounds, soft, nontender, and without any palpable masses aside from the uterine fundus. Her extremities are without any cyanosis, clubbing, or significant edema and are nontender to palpation bilaterally. Digital cervical examination is deferred. Results Result Diagrams: 05/19/25 10:45 Abnormal Lab Results - Last 24 Hours (Table) 05/19/25 Range/Units 10:45 WBC 13.76 H (4.50-10.00) 10*3/uL RBC 3.62 L (4.10-5.20) 10*6/uL Hgb 10.7 L (12.0-15.0) g/dL Hct 32.1 L (37.2-46.3) % Immature Gran # 0.10 H (0.00-0.04) 10*3/uL Neutrophils # 9.66 H (1.80-7.70) 10*3/uL Assessment and Plan (1) Previous section Current Visit: Yes Status: Acute Code(s): Z98.891 - HISTORY OF UTERINE SCAR FROM PREVIOUS SURGERY SNOMED Code(s): 111390882 (2) Term Current Visit: Yes Status: Acute Code(s): Z34.90 - ENCNTR FOR SUPRVSN OF NORMAL , UNSP, UNSP TRIMESTER SNOMED Code(s): 00445726 Plan: The patient is admitted for repeat low-transverse section. The risks and complications have been thoroughly discussed and she has understood and agreed to proceed.
--- NOTE | 2025-05-19 13:14 | P.OP ---
Date of Procedure: 05/19/25 Preoperative Diagnosis: #1. 39-2/7 weeks, previous section, requesting repeat #2. Gestational diabetes Postoperative Diagnosis: Same Procedure(s) Performed: #1. Repeat low-transverse section Anesthesia: spinal Surgeon: Bill Joshi Residential Carpet Installer #1: Barbara Puente Estimated Blood Loss (ml): 530 IV fluids (ml): 600 Urine output (ml): 400 Pathology: none sent Condition: stable Disposition: floor Operative Findings: The patient was taken to the operating room where she was delivered of a viable 8 pound 6 ounce baby boy with Apgars of 9 at 1 minute and 9 at 5 minutes delivered in the occiput anterior position. The placenta was delivered manually, intact, and grossly normal with a grossly normal three-vessel cord. The uterus, tubes, and ovaries were entirely normal to inspection. There was an average amount of scarring though the rectus muscles had been sewn together. Description of Procedure: The patient was prepped and draped in usual fashion after spinal anesthesia was administered by the anesthesiologist. A Pfannenstiel incision was made through her pre-existing scar and extended into the abdominal cavity without difficulty though there was some scarring at the linea alba secondary to previous suturing of the muscles together in the midline. The bladder peritoneum was significantly distal to the intended site of incision was left intact. A 2 cm incision was made the transverse plane of the lower uterine segment to enter the uterus at which time clear fluid was noted. The incision was extended in both directions using the bandage scissors. The head was delivered up and through the incision where the nose and mouth were thoroughly suctioned. The remainder of the infant was delivered onto the field where the cord was doubly clamped, cut, and the passed for resuscitative measures with weight and Apgars as noted above. The placenta was delivered manually and intact as noted above. The uterus was exteriorized and the anterior cavity the uterus swept of any remaining placental or membranous fragments. The margins of the uterine incision were grasped with Coulter clamps and the uterine incision closed in 2 layers. The first layer was a running locking stitch of 0 chromic catgut followed by a running imbricating stitch of 0 chromic catgut, each from margin to margin. The posterior cul-de-sac was suctioned with a guard followed by laparotomy sponge. The uterine and ovarian findings were normal as noted above. The uterus was replaced within the abdominal cavity and the gutters swept of any remaining blood, fluid, or clot. The incision was reexamined and any small points of bleeding made hemostatic with the Bovie. After establishing hemostasis, the parietal peritoneum was loosely reapproximated and the layer of muscles examined and found to be hemostatic. The fascia was closed with a single running stitch of 0 Vicryl proceeding from margin to margin. The subcutaneous tissues were examined and made hemostatic with the Bovie then reapproximated with a running stitch of 3-0 plain catgut. The skin was reapproximated with a running subcuticular stitch of 4-0 Vicryl followed by half-inch Steri-Strips placed with Mastisol. Quantitative blood loss for the case was 530 mL. There were no complications. All sponge, instrument, and needle counts were correct. The patient tolerated the procedure well and proceeded to the recovery room in stable condition. Both mother and are resting comfortably in recovery.
[2025-05-19] MEDS: diphenhydrAMINE 50 MG/ML 1 ML VIAL IVP PRN (15:11)
[2025-05-19] MEDS: LACTATED RINGERS 1,000 ML IV SCH (18:08)
[2025-05-19] MEDS: ACETAMINOPHEN TAB 500 MG TAB PO SCH (19:57)
[2025-05-19] MEDS: SENNOSIDES-DOCUSATE SODIUM 1 EACH TAB PO SCH (19:58)
[2025-05-19] MEDS: KETOROLAC 15 MG/ML 1 ML VIAL IVP PRN (23:59)
[2025-05-20 07:20] LABS: Basophils # (A) 0.06 10*3/uL (0.00-0.10); Basophils % (A) 0.4 %; Eosinophils # (A) 0.12 10*3/uL (0.04-0.35); Eosinophils % (A) 0.9 %; HGB 9.5 g/dL (12.0-15.0); Lymphocytes # (A) 2.58 10*3/uL (0.90-5.00); Lymphocytes % (A) 19.1 %; MCH 29.6 pg (27.0-32.0); MCHC 32.8 g/dL (32.0-37.0); MCV 90.3 fL (80.0-97.0); Mean Platelet Volume 11.6 fL (9.5-12.2); Monocytes # (A) 1.13 10*3/uL (0.20-1.00); Monocytes % (A) 8.4 %; Neutrophils # (A) 9.53 10*3/uL (1.80-7.70); Neutrophils % (A) 70.6 %; Platelet Count 298 10*3/uL (140-440); RBC 3.21 10*6/uL (4.10-5.20); RDW 15.3 % (11.5-14.5)
--- NOTE | 2025-05-20 07:54 | P.PN ---
Progress Note - Text Progress Note Date: 05/20/25 (968) Anesthesia Postop day 1 Subjective: Status Post section with Duramorph. Patient seen and examined. Doing well without complaint. VAS 3 out of 10. No nausea or vomiting. Mild pruritus tolerable.. Denies fever. Gross lower extremity strength intact. Without apparent anesthetic complications. Objective: Vital signs reviewed Heart: Regular Rate Lungs: Good chest excursion Abdomen: Appears nondistended Assessment: Status post section with Duramorph postop day 1 Plan: 1. Continue current care with your medical management. Anticipated end to the duration of the Duramorph around surgery time today. You may see increased pain needs around this time. 2. This note was dictated using iMICROQ software. Please be advised there is a potential for misspellings or errors in experienced truck driver.
[2025-05-20] MEDS: IBUPROFEN 800 MG TAB PO SCH (08:25)
--- NOTE | 2025-05-20 08:42 | P.PNOBGPC ---
Subjective - Subjective Patient reports: Reports appetite normal, Reports voiding normally, Reports pain well controlled, Reports ambulating normally : doing well, nursing well Objective - Vital Signs Latest vital signs: Vital Signs Temp Pulse Resp BP Pulse Ox 05/20/25 04:00 98.0 F 88 16 97/69 05/20/25 00:00 98.0 F 84 16 98 05/19/25 20:00 98.2 F 93 16 89/56 97 05/19/25 16:00 98.2 F 82 16 95/58 97 05/19/25 15:08 78 18 105/56 98 05/19/25 14:53 81 16 98/57 97 05/19/25 14:38 80 16 95/50 05/19/25 14:23 82 16 112/55 98 05/19/25 14:08 81 15 95/55 98 05/19/25 13:53 83 15 98/58 97 05/19/25 13:38 81 16 97/52 98 05/19/25 13:16 88 16 105/57 100 05/19/25 13:08 96.9 F L 88 16 105/57 100 05/19/25 10:47 97.3 F L 97 16 133/56 98 Intake and Output 05/19/25 05/20/25 05/20/25 22:59 06:59 14:59 Intake Total 2500 Output Total 760 400 Balance 1740 -400 Intake: IV 2200 Oral 300 Output: Urine 700 400 Uretheral (Hernández) 200 Output, Quantitative 60 Blood Loss Other: Voiding Method Indwelling Catheter - Exam Extremities: Present: normal Abdomen: Present: normal appearance, soft. Absent: distention, tenderness Incision: Present: normal, dry, intact Uterus: Present: normal, firm (The uterine fundus is tonic and appropriately tender just below the umbilicus.) - Labs Labs: Abnormal Lab Results - Last 24 Hours (Table) 05/19/25 05/20/25 Range/Units 10:45 06:31 WBC 13.76 H 13.50 H (4.50-10.00) 10*3/uL RBC 3.62 L 3.21 L (4.10-5.20) 10*6/uL Hgb 10.7 L 9.5 L (12.0-15.0) g/dL Hct 32.1 L 29.0 L (37.2-46.3) % Immature Gran # 0.10 H 0.08 H (0.00-0.04) 10*3/uL Neutrophils # 9.66 H 9.53 H (1.80-7.70) 10*3/uL Monocytes # 1.13 H (0.20-1.00) 10*3/uL Assessment and Plan (1) Previous section Current Visit: Yes Status: Acute Code(s): Z98.891 - HISTORY OF UTERINE SCAR FROM PREVIOUS SURGERY SNOMED Code(s): 518744050 (2) Term Current Visit: Yes Status: Acute Code(s): Z34.90 - ENCNTR FOR SUPRVSN OF NORMAL , UNSP, UNSP TRIMESTER SNOMED Code(s): 99279916 (3) S/P section Current Visit: Yes Status: Acute Code(s): Z98.891 - HISTORY OF UTERINE SCAR FROM PREVIOUS SURGERY SNOMED Code(s): 263154046 Plan: Continue routine and postoperative care. I have encouraged the patient to ambulate in the hallways routinely. I would anticipate discharge home tomorrow pending no complications.
[2025-05-21 08:37] VITALS: BP 94/58; PULSE 83; RESP 16; TEMP 98.1
--- NOTE | 2025-05-21 10:30 | P.DS ---
Providers Date of admission: 05/19/25 10:10 Expected date of discharge: 05/21/25 Attending physician: Bill Joshi Primary care physician: Stated None - Discharge Diagnosis(es) (1) Previous section Current Visit: Yes Status: Acute (2) Term Current Visit: Yes Status: Acute (3) S/P section Current Visit: Yes Status: Acute Hospital Course: The patient is a 30-year-old 2 para 1-0-0-1 admitted at 39-2/7 weeks by good dating parameters. She is admitted for repeat low-transverse section having undergone a previous section. She was diagnosed with gestational diabetes and had excellent sugar control throughout the with reassuring testing on a weekly basis after 32 weeks. On labor delivery, all signs were reassuring with a category 1 heart rate tracing. She was taken to the operating room where she was delivered of a viable 8 pound 12 ounce baby boy with Apgars of 9 at 1 minute and 9 at 5 minutes by repeat low- transverse section. The procedure was uncomplicated in nature. Her and postoperative course was unremarkable with vital signs remaining stable and her temperature was afebrile throughout. She was deemed stable for discharge on and postoperative day #2 and was discharged home to follow-up in the office in 2 weeks for an incision check in 6 weeks routinely. Discharge instructions included calling for any significantly increased bleeding or foul-smelling lochia, significantly increased fever abdominal pain, perineal complaints, breast complaints, incisional complaints, or anything else that concerned her. She was additionally instructed to have nothing in the vagina for at least 6 weeks time to include intercourse and to abstain from any heavy lifting over the same period of time. She was lastly instructed to do no driving until off of all pain medications or 2 weeks time, whichever came first. She understood her instructions and agrees to follow-up as noted above. Disc harge medications included [id number] analgesic pain medications as well as a prescription for oxycodone 5 mg, 1-2 p.o. every 6 hours as needed pain, #20 dispensed with no refills. Maternal blood type is O+ and rubella status is immune. Discharge hemoglobin and hematocrit were 9.5 and 29.0 respectively. Procedures: #1. Repeat low-transverse section Patient Condition at Discharge: Stable Plan - Discharge Summary New Discharge Prescriptions: No Action Vit No.180/Iron/Folic [ Plus Tablet] 1 tab PO HS MDD 1 tab HYDROcodone/APAP 5-325MG [[place] 5-325] 1 tab PO Q4HR PRN #20 tab PRN Reason: Pain Ibuprofen [Motrin] 600 mg PO Q6HR PRN #30 tab PRN Reason: Pain Amoxicillin 250 mg PO BID Discharge Medication List Vit No.180/Iron/Folic [ Plus Tablet] 1 tab PO HS MDD 1 tab 11/22/20 [History] HYDROcodone/APAP 5-325MG [[place] 5-325] 1 tab PO Q4HR PRN #20 tab 05/27/21 [Rx] Ibuprofen [Motrin] 600 mg PO Q6HR PRN #30 tab 05/27/21 [Rx] Amoxicillin 250 mg PO BID 05/19/25 [History] Follow up Appointment(s)/Referral(s): Bill Joshi MD [STAFF PHYSICIAN] - 06/03/25 2:00 pm (07/01/25 @ 1:45 PM) Discharge Disposition: HOME SELF-CARE
== END 2025-05-21 14:55 | disposition home or self-care (01) | DRG 540 ==
LOC: 4FBP 10:10
PROVIDERS: ADMIT Obstetrics & Gynecology; ATTEND Obstetrics & Gynecology
PROC: 10D00Z1 Extraction of Products of Conception, Low, Open Approach (ICD-10-PCS; principal; 2025-05-19 12:00)
DX: O34.211 Maternal care for low transverse scar from previous cesarean delivery (principal); O24.420 Gestational diabetes mellitus in childbirth, diet controlled; O43.113 Circumvallate placenta, third trimester; Z3A.39 39 weeks gestation of pregnancy; Z37.0 Single live birth; L29.9 Pruritus, unspecified; Z87.891 Personal history of nicotine dependence; Z86.19 Personal history of other infectious and parasitic diseases
CPT/HCPCS: 85025; 86850; 86900; 86901